=== PATIENT | female | born 1945 | race Caucasian/White ===

== ENCOUNTER 2024-08-21 10:03 | Day surgery (SDC) | payer MEDICARE ==
[2024-08-14 10:45] VITALS: BP 152/90
[~2024-08-21] VITALS: Ht 162.6 cm; Wt 74.1 kg
[~2024-08-21 10:03] MED LIST: CRESTOR5 MG PO; IBLOOD GLUCOSE TEST STRIP 1 EA TEST VI PRN; LACTATED RINGER'S 1,000 ML IV SCH; LEXAPRO5 MG PO; LIDOCAINE HCL 1% 5 ML SDV INJ ONE; LISINOPRIL10 MG PO; LISINOPRIL20 MG PO; OSTERA TABLET1 EACH PO; PANTOPRAZOLE SO40 MG PO
[2024-08-21 10:17] VITALS: BP 147/84
[2024-08-21] MEDS ORDERED: propofoL 200 MG/20 ML VIAL ONE (11:13)
[2024-08-21] MEDS ORDERED: LIDOCAINE HCL 2% 5 ML SDV ONE (11:13)
[2024-08-21 12:29] VITALS: BP 110/74
--- NOTE | 2024-08-21 12:38 | NUR ---
08/21/24 1238 Lizzie Field 1203 PT ARRIVED IN PACU SLEEPY. ABD SOFT AND PASSING FLATUS. 1215 DR AT BEDSIDE. ALL QUESTIONS ANSWERED. 1225 UP TO BATHROOM. VOIDED. BACK AT BEDSIDE GETTING DRESSED. 1230 DC INSTRUCTIONS GIVEN. 1237 LEFT VIA W/C.
--- NOTE | 2024-08-22 12:25 | OR ---
[facility] [address] [place], [place] [address] Signed DATE OF OPERATION: 08/21/2024 SURGEON: Toya Inman MD PREOPERATIVE DIAGNOSES: 1. Family history of colon cancer (father). 2. History of tubular adenoma, 2004. POSTOPERATIVE DIAGNOSES: 1. Sigmoid diverticulosis. 2. Edema of sigmoid and rectum without acute ulcerative changes. PROCEDURE: Total colonoscopy to cecum with biopsies. ANESTHESIA: Intravenous sedation propofol; Abdullahi Nance CRNA. INDICATION: This 78-year-old white woman is a patient of MINERVA Calix. She is known to me from the past last undergone colonoscopy in 2013. She had been found to have a tubular adenoma in 2004. In 2013, colonoscopy was normal. She does have family history of colon cancer in her father who is long . She has had some complaints of episodic diarrhea currently, but no blood per rectum. She is admitted to undergo colonoscopy at this time, understands the risk of bleeding, infection, and perforation. FINDINGS: The prep was good. Complete colonoscopy was undertaken of the cecum. The colon was definitely redundant, but full intubation of the cecum was accomplished. She had diverticulosis of the sigmoid and edematous mucosa of the sigmoid and rectum. There was no sign of ulceration however. DESCRIPTION OF PROCEDURE: The patient was brought to the endoscopy suite and placed in lateral decubitus position, given intravenous sedation to the point of slurred speech and nystagmus. Digital rectal examination was normal. An Olympus video colonoscope was passed in the rectum and manipulated into the sigmoid where diverticular changes were noted. Scope was advanced beyond this. Abdominal wall stabilization was required to pass beyond hepatic flexure, but ultimately it was Electronically Signed By: TOYA INMAN MD 08/22/24 1225 PATIENT NAME: MANINDER TOPETE OPERATIVE REPORT DATE OF : 47 REPORT #: [id number] PHYSICIAN: TOYA INMAN MD PCP: EDGAR RAY REPORT IS CONFIDENTIAL AND NOT TO BE RELEASED WITHOUT AUTHORIZATION [facility] [address] [place], [place] [address] Signed accomplished and full intubation of cecum undertaken. The cecum appeared normal. Scope was withdrawn from that point. Examination was undertaken showing no sign of abnormality other than diverticula of the sigmoid and left colon. There was edematous mucosa of the sigmoid and biopsies were obtained on that basis. Additionally, the edema of the rectum was noted. There was no sign of actual ulceration or acute inflammation, only edematous mucosa without distinguishing blood vessels or other details. The scope was removed and the patient was taken to the recovery room in good condition. CONCLUDING DIAGNOSIS: Edema of rectum and sigmoid with associated diverticulosis. Uncertain significance. PLAN: Wait for pathology and specific treatment depending on those findings. She should return to see me in approximately 4 to 6 weeks. Additionally, would recommend repeat colonoscopy in 5 years considering family history of colon cancer in her father if clinically appropriate. She will return to see me in four to six weeks in order to review her pathology report. MD VALARIE Link/CURT /[id number] cc: MINERVA Calix Copies: EDGAR RAY ~ Electronically Signed By: TOYA INMAN MD 08/22/24 1225 PATIENT NAME: MANINDER TOPETE MITESH OPERATIVE REPORT DATE OF : 47 REPORT #: [id number] PHYSICIAN: TOYA INMAN MD PCP: EDGAR RAY REPORT IS CONFIDENTIAL AND NOT TO BE RELEASED WITHOUT AUTHORIZATION
--- NOTE | 2024-08-28 06:15 | PATH ---
[facility] [address] [facility] [place], [place] [address] Signed SPECIMEN(S): A SIGMOID COLON BIOPSY SPECIMEN(S): B RECTUM SPECIMEN SOURCE: A. SIGMOID COLON BIOPSY B. RECTUM CLINICAL HISTORY: Personal history of colon polyps, diverticulosis, mild sigmoid and rectal inflammation FINAL PATHOLOGIC DIAGNOSIS: A. Colon, sigmoid, biopsy: - Focal active colitis. B. Rectum, biopsy: - No significant histopathologic alterations. COMMENT: A. The biopsies from the colon show the presence of a focal active colitis. The differential diagnosis of focal active colitis includes bowel preparation effect, trauma/prolapse, infection, drug or ischemic injury, IBD, areas near diverticula or stasis. B. The sections from the specimen are architecturally normal without crypt distortion. There is no acute or chronic inflammation. There is no evidence of microscopic colitis. There are no abnormal organisms or infiltrates. There is no evidence of polyps or neoplasia. [facility] MICROSCOPIC EXAMINATION: Histologic sections of all submitted blocks are examined by light microscopy. These findings, together with the gross examination, support the pathologic diagnosis. GROSS DESCRIPTION: A. The specimen, labeled and designated "Luong, sigmoid colon biopsy," is received in formalin and consists of two casas soft tissue fragments, ranging from 0.1-0.6 cm. Entirely submitted in (A1). B. The specimen, labeled and designated "Luong, rectum biopsy," is received in formalin and consists of three casas soft tissue fragments, ranging from 0.2-0.5 cm. Entirely submitted in (B1). VB (under the direct supervision of a pathologist) PATIENT NAME: MANINDER LUONG PATHOLOGY DATE OF : 47 REPORT #: [id number] PHYSICIAN: MARISSA WILD PCP: EDGAR RAY REPORT IS CONFIDENTIAL AND NOT TO BE RELEASED WITHOUT AUTHORIZATION [facility] [address] [place], [place] [address] Signed The Gross Description was prepared using a voice recognition system. The report was reviewed for accuracy; however, sound-alike word errors, addition and/or deletions may occur. If there is any question about this report, please contact Client Services. ADDITIONAL NOTES: Immunohistochemical and/or in situ hybridization studies if performed in this case included appropriate positive controls that reacted as expected. This test was developed and its performance characteristics determined by [facility]. It has not been cleared or approved by the U.S. Food and Drug Administration. The FDA has determined that such clearance or approval is not necessary. This test is used for clinical purposes. It should not be regarded as investigational or for research. [facility] is certified under the Clinical Laboratory Improvement Amendments of 1988 (CLIA) as qualified to perform high complexity clinical laboratory testing. PERFORMING LABORATORY: Technical component was performed by [facility], [address] [place] [id number] (CLIA# [id number]). Professional interpretation was performed by [facility], [address] [place] [address] (CLIA#:[id number]). Diagnostician: Yonathan Gandhi MD Pathologist Electronically Signed 08/28/2024 Copies: ~ PATIENT NAME: MANINDER LUONG MITESH PATHOLOGY DATE OF : 47 REPORT #: [id number] PHYSICIAN: MARISSA PATHOLOGY PCP: EDGAR RAY REPORT IS CONFIDENTIAL AND NOT TO BE RELEASED WITHOUT AUTHORIZATION
== END 2024-08-21 12:37 | disposition home or self-care (01) ==
LOC: OPS 10:03 → DS 10:03 → OPS 11:20
PROVIDERS: ATTEND Surgery
PROC: 0DBN8ZX Excision of Sigmoid Colon, Via Natural or Artificial Opening Endoscopic, Diagnostic (ICD-10-PCS; 2024-08-21)
PROC: 0DBP8ZX Excision of Rectum, Via Natural or Artificial Opening Endoscopic, Diagnostic (ICD-10-PCS; principal; 2024-08-21 12:00)
DX: K52.9 Noninfective gastroenteritis and colitis, unspecified (principal); K57.30 Diverticulosis of large intestine without perforation or abscess without bleeding; I10 Essential (primary) hypertension; Z80.0 Family history of malignant neoplasm of digestive organs; Z86.0101 Personal history of adenomatous and serrated colon polyps; Z90.81 Acquired absence of spleen
CPT/HCPCS: 00811; 88305; J2003; J2704; J7121

== ENCOUNTER 2024-11-07 18:34 | Emergency (ER) | payer OTHER, MEDICARE ==
[~2024-11-07] VITALS: Ht 162.6 cm; Wt 79.8 kg
[~2024-11-07 18:34] MED LIST changes: -IBLOOD GLUCOSE TEST STRIP 1 EA TEST VI PRN; -LACTATED RINGER'S 1,000 ML IV SCH; -LIDOCAINE HCL 1% 5 ML SDV INJ ONE
[2024-11-07] MEDS ORDERED: PANTOPRAZOLE SO40 MG (19:22)
[2024-11-07] MEDS ORDERED: MORPHINE SULFATE 4 MG/ML VIAL IV ONE (19:45)
[2024-11-07] MEDS ORDERED: ACETAMINOPHEN 500 MG TAB PO ONE (20:15)
[2024-11-07] MEDS ORDERED: TRAMADOL HCL50 MG PO (20:58)
[2024-11-07 21:05] VITALS: BP 162/98
[2024-11-07] MEDS ORDERED: TRAMADOL HCL 50 MG HOME.PACK PO ONE (21:15)
== END 2024-11-07 21:12 | disposition home or self-care (01) ==
LOC: ED 18:34
DX: S93.602A Unspecified sprain of left foot, initial encounter (principal); S13.9XXA Sprain of joints and ligaments of unspecified parts of neck, initial encounter; S00.01XA Abrasion of scalp, initial encounter; X50.1XXA Overexertion from prolonged static or awkward postures, initial encounter; I10 Essential (primary) hypertension; E78.5 Hyperlipidemia, unspecified; Z87.891 Personal history of nicotine dependence; Z88.2 Allergy status to sulfonamides; Z79.899 Other long term (current) drug therapy
CPT/HCPCS: 70450; 72125; 73630; 99284-25; A9270

== ENCOUNTER 2025-09-02 17:54 | Emergency (ER) | payer MEDICARE ==
[~2025-09-02] VITALS: Ht 162.6 cm; Wt 75.0 kg
[~2025-09-02 17:54] MED LIST changes: +PANTOPRAZOLE SO40 MG; +TRAMADOL HCL50 MG PO
[2025-09-02] MEDS ORDERED: LOSARTAN POTAS100 MG PO (19:07)
[2025-09-02] MEDS ORDERED: KETOROLAC TROMETHAMINE 30 MG/ML VIAL IM ONE (20:30)
[2025-09-02] MEDS ORDERED: MELOXICAM7.5 MG PO (20:30)
[2025-09-02 21:00] VITALS: BP 158/88
== END 2025-09-02 21:01 | disposition home or self-care (01) ==
LOC: ED 17:54
DX: S86.912A Strain of unspecified muscle(s) and tendon(s) at lower leg level, left leg, initial encounter (principal); I10 Essential (primary) hypertension; K21.9 Gastro-esophageal reflux disease without esophagitis; E78.5 Hyperlipidemia, unspecified; Z79.899 Other long term (current) drug therapy; Z88.2 Allergy status to sulfonamides; Z87.891 Personal history of nicotine dependence; X58.XXXA Exposure to other specified factors, initial encounter
CPT/HCPCS: 73560; 96372; 99283; J1885